=== PATIENT | male | born 1950 | race Caucasian/White ===

== ENCOUNTER 2023-11-12 09:51 | Emergency (ER) | payer OTHER, MEDICAID ==
[~2023-11-12] VITALS: Ht 170.2 cm; Wt 79.0 kg
[2023-11-12 09:55] VITALS: O2SAT 98
[2023-11-12 10:41] LABS: BASOPHILS % 0.7 % (0.0-2.0); EOSINOPHILS % 1.4 % (0.0-5.0); HEMATOCRIT. 40.8 % (42.0-52.0); HEMOGLOBIN. 13.5 g/dL (14.0-18.0); MEAN CORPUSCULAR HEMOGLOBIN 27.2 pg (28.0-32.0); MEAN CORPUSCULAR HGB CONC 33.1 g/dL (31.0-37.0); MEAN CORPUSCULAR VOLUME 82.3 fL (80.0-94.0); MEAN PLATELET VOLUME 7.6 fl (7.4-10.4); MONOCYTES % 6.6 % (2.0-8.0); NEUTROPHILS % 65.3 % (40.0-76.0); PLATELET 275 x1000/uL (130-400); RED BLOOD CELL COUNT 4.96 mill/uL (4.7-6.1); WHITE BLOOD COUNT 7.8 x1000/uL (4.5-11.0)
[2023-11-12 10:46] LABS: PROTHROMBIN TIME 10.9 sec (9.6-11.0)
[2023-11-12 10:47] LABS: CHLORIDE 104 mEq/L (98-107); SODIUM 138 mEq/L (136-145)
[2023-11-12 10:48] LABS: CALCIUM 9.1 mg/dL (8.7-10.4); CARBON DIOXIDE 24 mEq/L (21-32)
[2023-11-12 10:53] LABS: GLUCOSE 188 mg/dL (70-105); UREA NITROGEN BLOOD 18 mg/dL (9-23)
[2023-11-12] MEDS: IOHEXOL-350 100 ML BOTTLE ONE (10:54)
[2023-11-12 10:55] LABS: ALANINE AMINOTRANSFERASE 23 IU/L (10-49); ALBUMIN 4.5 g/dL (3.2-4.8); ASPARTATE AMINOTRANSFERASE 18 IU/L (<34); BILIRUBIN DIRECT 0.2 mg/dL (<=3.0); BILIRUBIN TOTAL 0.5 mg/dL (0.1-1.0)
[2023-11-12 10:56] LABS: PROTEIN TOTAL 7.5 g/dL (6.0-8.3); TROPONIN I HIGH SENSITIVITY 5 ng/L (3.0-53)
[2023-11-12] MEDS: MORPHINE SULFATE 4 MG/ML INJ (FOR IV/IM USE) IV ONE (11:45)
[2023-11-12] MEDS ORDERED: ONDANSETRON HCL 4MG/2ML INJ IV PRN (13:30)
[2023-11-12] MEDS ORDERED: DEXTROSE 50% WATER 50ML SYRINGE IV PRN (13:30)
[2023-11-12] MEDS ORDERED: ACETAMINOPHEN 325MG TABLET PO PRN (13:30)
[2023-11-12] MEDS: AMLODIPINE 5MG TABLET PO SCH (13:53)
[2023-11-12] MEDS: HYDRALAZINE HCL 25MG TABLET PO PRN (15:31)
[2023-11-12 16:59] VITALS: BP 186/88; PULSE 73; RESP 14; TEMP 98.3
[2023-11-12] MEDS ORDERED: BLOOD SUGAR DIAGNOSTIC STRIP TEST SCH (17:00)
[2023-11-12] MEDS ORDERED: ENOXAPARIN 40MG/0.4ML SYR SUBCUT SCH (18:00)
[2023-11-12] MEDS ORDERED: INSULIN LISPRO 100 UNITS/ML SUBCUT SCH (18:20)
[2023-11-12] MEDS ORDERED: ATORVASTATIN CALCIUM 20MG TABLET PO SCH (21:00)
[2023-11-13] MEDS ORDERED: ASPIRIN 81MG TABLET PO SCH ×2 (09:00)
[2023-11-13] MEDS ORDERED: CLOPIDOGREL 75MG TABLET PO SCH (09:00)
== END 2023-11-12 17:04 | disposition left against medical advice (07) ==
LOC: ER 10:50 → EDBEDREQ 11:46 → ER 17:04
DX: I65.09 Occlusion and stenosis of unspecified vertebral artery (principal); I10 Essential (primary) hypertension; S09.90XA Unspecified injury of head, initial encounter; Z88.6 Allergy status to analgesic agent; E78.00 Pure hypercholesterolemia, unspecified; E11.9 Type 2 diabetes mellitus without complications; Z98.890 Other specified postprocedural states; W18.30XA Fall on same level, unspecified, initial encounter; Y93.89 Activity, other specified; Y92.89 Other specified places as the place of occurrence of the external cause; Y99.8 Other external cause status
CPT/HCPCS: 99291; 70496; 96374; 71045; 80076; 80048; 85025; 85610; 84484; 36415; 70498; 71260; 74177; 93005; 70450; Q9967; J2270